=== PATIENT | male | born 1995 | race Caucasian/White ===

== ENCOUNTER → 2022-04-20 | Day surgery (SDC) | payer BC ==
[~2022-04-20] MED LIST: BUPIVACAINE 0.25% 30ML SDV ONE; SUGAMMADEX SODIUM 200 MG/2 ML VIAL IV ONE
[2022-04-20 09:00] VITALS: BP 107/73
== END | disposition home or self-care (01) ==
LOC: OR 05:29
PROVIDERS: ATTEND Otolaryngology
DX: J35.03 Chronic tonsillitis and adenoiditis (principal); Z01.812 Encounter for preprocedural laboratory examination; Z20.822 Contact with and (suspected) exposure to COVID-19; Z86.16 Personal history of COVID-19
CPT/HCPCS: 0223U; 36415; 42821; 88304